=== PATIENT | male | born 1955 | race Caucasian/White ===

== ENCOUNTER 2021-02-03 07:09 | Emergency (ER) | payer OTHER ==
[2021-02-03] MEDS ORDERED: EPINEPHrine 1 MG/10 ML SYR IV ONE (07:10)
--- OUTSIDE RECORDS SUMMARY | 2021-02-03 07:12 | XMS REPORT | Continuity of Care Document ---
:1955 Author Organization [facility] t Address 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 M ethodi margot pain margot pain 07-06 st 00:00: Hospita 00 l Arthritis Arthritis Disease Active 2018-06 [facility]odi of left of left [address] knee knee 00:00: Hospita 00 l Primary Primary Disease Active 2018-06 [facility] osteoarthr osteoarthr [address] itis of itis of 00:00: Hospita both knees both knees 00 l Total knee Total knee Disease Active 2019 M ethodi replacemen replacemen 02-06 st t status, t status, 00:00: Hosp claudy left left 00 l Chronic Chronic Disease Active [facility] bilateral bilateral [facility] st low back low back 00:00: Hospit a pain pain 00 l without without sciatica sciatica Chronic Chronic Disease Active [facility] pain of pain of 8 st both knees both knees 00:00: Ho spita 00 l Allergies, Adverse Reactions, Alerts This patient has no known allergies or adverse reactions. Family History Family Member Diagnosis Comments Start Date Stop Date Source Natural brother Cancer [facility] Natural father Cancer [facility] Social History Social Habit Start Date Stop Date Quantity Comments Source Tobacco use and 2019-08-14 2019-08-14 Never used [facility] exposure 00:00:00 00:00:00 Hospital Alcohol intake 2019-08-14 2019-08-14 Ex-drinker [facility] 00:00:00 00:00:00 (finding) Hospital Sex Ass[birth year] At [birth year] [facility] 00:00:00 00:00:00 Hospital Smoking Status Start Date Stop Date Source Never smoker [facility] al Medications Ordered Filled Start Stop Current Ordering Indication Dosage Frequency Signature Comments Components Source Medication Medication Date Date Medication? Clinician (SIG) Name Name honey 2019- Yes QD Apply [facility] (MEDIHONEY, 2-[address] HONEY,) 80 00:00: daily. Hospi ta % gel 00 l topcial gel cyclobenzap 2019-0 Yes 10mg [id number] Take 10 mg [facility] rine 2-17 [id number] mouth [address] (FLEXERIL) 19:35: 3D (three) Hosp claudy 10 mg 41 times a l tablet day as needed for muscle spasms. clonAZEPAM 2019-0 Yes 1mg Q.5D Take 1 mg Me thodi (KlonoPIN) 2-[address] 1 MG tablet 19:35: (two) Hospi ta 41 times a l day as needed for seizures. amoxicillin 2019-0 Yes 250mg Q.[id number] Take 250 [facility] (AMOXIL) 2-[id number] 250 MG 19:35: 3D mouth 3 Hospita capsule 41 (three) l times a day. HYDROcodone 2019-0 Yes [id number] 1{tbl} Q6H Take 1 M [facility]i -acetaminop 2-[address] hen (NORCO) 19:35: mouth Hospi ta 10-325 mg 41 every 6 l per tablet (six) hours as needed for moderate pain .acute pain. lisinopril 2018-0 Yes [facility] (PRINIVIL,Z 8-01 st ESTRIL) 20 00:00: Hospita mg tablet 00 l Procedures This patient has no known procedures. Plan of Care Planned Activity Planned Date Details Comments Source Future Scheduled Test COVID-19 VACCINE (1) [facility] [code = COVID-19 VACCINE (1)] Future Scheduled Test Hepatitis C screening [facility] (procedure) [code = 403489185] Future Scheduled Test COLONOSCOPY SCREENING [facility] [code = COLONOSCOPY SCREENING] Future Scheduled Test SHINGLES VACCINES (#1) [facility] [code = SHINGLES VACCINES (#1)] Future Scheduled Test INFLUENZA VACCINE [code [facility] = INFLUENZA VACCINE] Encounters Start End Encounter Admission Attending Care Care Encounter Source Date/Time Date/Time Type Type Clinicians Facility Department ID 2019-08-14 2019-08-14 Outpatient LUZ [facility] [id number] [address] [place] 00:00:00 00:00:00 JERZY [address] 2019-08-14 2019-08-14 Outpatient CANDYCAREYAstrid [facility] [id number] [address] [place] 00:00:00 00:00:[address] JERZY [address] 2019-08-04 2019-08-[address] [facility] [id number] [place] 00:00:00 00:00:[address] 2019-05-05 2019-05-07 Inpatient SRAVANI [facility] [id number] [address] [place] 00:00:00 00:00:[address] SILVIA [address] Results This patient has no known results.
[2021-02-03] MEDS ORDERED: NA CHLORIDE 0.9% 1,000 ML ONE (07:38)
[2021-02-03] MEDS ORDERED: ONDANSETRON 4 MG/2 ML VIAL ONE (07:40)
[2021-02-03] MEDS ORDERED: FENTANYL CITR 100 MCG/2 ML ONE ×2 (07:40→09:25)
[2021-02-03] MEDS ORDERED: NOREPINEPHRINE 4 MG/4 ML VIAL ONE (07:47)
[2021-02-03] MEDS ORDERED: D5W 250 ML IV ONE ×2 (07:47→09:54)
[2021-02-03 08:06] LABS: Protime INR 1.03
[2021-02-03 08:08] LABS: Absolute Lymphocytes (CBC) 3.9 K/uL (0.7-4.9); Basophils % 0.6 % (0-1.3); Hematocrit 50.8 % (39.6-49.0); Lymphocytes % 40.9 % (15.3-44.8); MPV 8.3 fL (7.6-11.3); RBC Red Blood Cell Count 5.64 M/uL (4.33-5.43)
[2021-02-03] MEDS ORDERED: ETOMIDATE 20 MG/10 ML VIAL IV ONE (08:19)
[2021-02-03 08:33] LABS: BUN Blood Urea Nitrogen 27 mg/dL (7-18); Bicarbonate 22 mmol/L (21-32); Glucose Level 145 mg/dL (74-106); NT PRO-BNP 140 pg/mL (<125); Sodium Level 150 mmol/L (136-145); Troponin (Emerg Dept Use Only) < 0.02 ng/mL (0.0-0.045)
[2021-02-03 08:36] LABS: Magnesium 2.4 mg/dL (1.8-2.4); Potassium 4.1 mmol/L (3.5-5.1)
[2021-02-03] MEDS ORDERED: AMIODARONE IN DEXTROSE,ISO-OSM 360 MG/200 ML BAG IV ONE (08:39)
--- NOTE | 2021-02-03 08:40 | RAD REPORT ---
EXAM DESCRIPTION: CT - Angio Aorta For Dissection - 02/03/2021 8:14 am CLINICAL HISTORY: . Chest and abd pain COMPARISON: None TECHNIQUE: Computed tomography angiography of the chest, abdomen pelvis were obtained. 150 cc Isovue 370 was administered intravenously. Coronal and sagittal reconstruction were performed. MIP 3D reconstruction was performed All CT scans are performed using dose optimization technique as appropriate and may include automated exposure control or mA/KV adjustment according to patient size. FINDINGS: Due to machine malfunction the bolus of contrast is present within the pulmonary arteries and not the aorta. This renders detection of an aortic dissection nondiagnostic. Proximal ascending aorta has an AP diameter 4.5 centimeters. Descending aorta is ectatic and tortuou s. . A lung consolidation is not present. A pericardial effusion is not seen. A pleural effusion is not n oted. The heart is enlarged. Curvilinear calcification are present within the abdominal aorta in several locations towards the [place] ter of the lumen. Opacification of right hepatic veins is present while left hepatic veins are unopacified. I suspect t his is related passive hepatic congestion. 5.8 centimeter cystic mass within the liver is nonspecific without IV contrast but probably a cyst. Spleen, pancreas and right adrenal gland grossly normal. Small nonobstructing bilateral renal calculi. Renal cysts are present. Left adrenal adenoma measures 2.5 centimeters Small umbilical hernia contains fat. Diverticula stem the colon without evidence diverticulitis. Normal appendix. No free air. 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 This is very nonspecific fin ding but can be a secondary sign of an aortic dissection.
--- NOTE | 2021-02-03 08:41 | RAD REPORT ---
EXAM DESCRIPTION: Kevon Single View02/03/2021 7:47 am CLINICAL HISTORY: Chest pain COMPARISON: none FINDINGS: The lungs appear clear of acute infiltrate. The heart is is enlarged . The thoracic aorta is prominent which may be secondary to an aneurysm
[2021-02-03] MEDS ORDERED: NA CHLORIDE 0.9% 2,000 ML ONE (09:41)
--- NOTE | 2021-02-03 09:53 | EDPHYS ---
Physician Documentation [facility] Name: Rubin Lentz Age: 65 yrs Sex: Male : 1955 Arrival Date: 02/03/2021 Time: 07:11 Bed DIS1 Private MD: ED Physician David Meza HPI: 02/03 07:19 This 65 yrs old Male presents to ER via Unassigned with complaints of Chest rn pain. 07:19 The patient or guardian reports chest pain that is located primarily in the substernal rn area. Onset: just prior to arrival. The pain radiates to back. Associated signs and symptoms: Pertinent positives: diaphoresis, shortness of breath, Pertinent negatives: abdominal pain, cough, syncope, vomiting. The chest pain is described as sharp. Duration: The patient or guardian reports a single episode, that is still ongoing. Modifying factors: The symptoms are alleviated by nothing. the symptoms are aggravated by nothing. Severity of pain: At its worst the pain was moderate in the emergency department the pain is unchanged. The patient has not experienced similar symptoms in the past. The patient has not recently seen a physician. Patient states substernal, sharp, woke him up from sleep. EMS states patient diaphoretic and hypotensive. Radiates to the back. Patient denies recent illness felt fine when went to bed. No previous cardiac problems. Not anticoagulated.. Historical: - Allergies: 07:05 No Known Allergies; jb4 - PMHx: 07:05 Hypertensive disorder; depression; jb4 - Immunization history:: Adult Immunizations unknown. - Social history:: Smoking status: unknown. - Family history:: not pertinent. - Hospitalizations: : No recent hospitalization is reported. ROS: 07:19 Constitutional: Negative for fever, chills, and weight loss, Eyes: Negative for injury, rn pain, redness, and discharge, Neck: Negative for injury, pain, and swelling, Cardiovascular: Negative for palpitations, and edema, Respiratory: Negative for cough, wheezing, and pleuritic chest pain, Abdomen/GI: Negative for abdominal pain, vomiting, diarrhea, and constipation, Back: Negative for injury : Negative for injury, bleeding, discharge, and swelling, MS/Extremity: Negative for injury and deformity, Skin: Negative for injury, rash, and discoloration, Neuro: Negative for headache, weakness, numbness, tingling, and seizure. 07:19 All other systems are negative. Exam: 07:19 Constitutional: Overweight male diaphoretic and appears uncomfortable Head/Face: rn Normocephalic, atraumatic. Eyes: Periorbital areas with no swelling, redness, or edema. Cardiovascular: Irregular, regular rate rhythm, no pulse deficits Respiratory: Mild tachypnea Abdomen/GI: Soft, nontender, no pulsatile masses Skin: Warm, dry MS/ Extremity: Pulses equal, no cyanosis. Neuro: Awake and alert, GCS 15 08:34 ECG was reviewed by the Attending Physician. rn Vital Signs: 07:08 BP 70 / 46; Pulse 91; Resp 15; Pulse Ox 98% on 15% Non-rebreather mask; sv 07:10 Weight 130 kg; sv 07:15 BP 74 / 52; Pulse 89; Resp 15; Pulse Ox 100% on 15% Non-rebreather mask; sv 07:24 BP 72 / 48; Pulse 92; Resp 25; Pulse Ox 100% on 15% Non-rebreather mask; sv 07:45 BP 59 / 46; Pulse 103; Resp 16; Pulse Ox 100% on 15% Non-rebreather mask; sv 08:00 BP 82 / 58; Pulse 108; Resp 16; Pulse Ox 99% on 15% Non-rebreather mask; sv 08:15 BP 81 / 44; Pulse 124; Resp 16; Pulse Ox 100% on BVM; sv 08:30 BP 58 / 34; Pulse 88; Resp 20; sv 08:45 BP 83 / 69; Pulse 100; Resp 35; Pulse Ox 100% ; sv 09:00 BP 56 / 45; Pulse 108; Resp 21; Temp 96.8(C); Pulse Ox 88% on BVM; sv 09:04 BP 56 / 45; Pulse 109; Resp 24; Temp 96.9; Pulse Ox 91% on 100% FiO2 ETT vent; sv 09:15 BP 51 / 32; Pulse 103; Resp 17; Pulse Ox 100% on BVM; sv 09:30 BP 51 / 19; Pulse 76; Resp 16; Pulse Ox 100% on 100% FiO2 ETT vent; sv 09:31 BP 35 / 23; Pulse 25; Resp 16; sv 09:34 Pulse 29; sv 09:37 BP 98 / 17; Pulse 115; Resp 16; Temp 96.8; Pulse Ox 75% on 100% FiO2 ETT vent; sv Procedures: 07:35 Central Line: the site was prepped with Betadine, in sterile fashion, a triple lumen rn catheter was inserted, in the right femoral vein, in 1 attempts. placement was verified, by blood return, the site was dressed with Tegaderm, using sterile technique, the patient tolerated the procedure, well. 08:01 Intubation: Ventilated with 100% NRB prior to procedure. O2 saturation prior to learning and development manager was 100 %. Intubated orally using # 4 Janet blade with 7.5 mm ETT. was successful on first attempt. Ventilated with Ambu bag. Cricoid pressure applied during procedure. Tube secured with ETT english at right side of mouth measured 23 cm at teeth. Placement verified by CO2 detector with (+) color change, auscultating bilateral breath sounds, O2 saturation after procedure was 100 %. Patient tolerated well. MDM: 07:12 Patient medically screened. rn 07:35 ED course: Patient persistently hypotensive and diaphoretic despite fluid challenge, rn decision made to place central line, right femoral for rapid access. Patient cannot move or feel below umbilicus, EKG consistent with cardiac ischemia but given chest pain back pain hypotension and neurological findings will need to rule out aortic dissection.. 07:47 ED course: Patient not improving with pressor initially, called for stat CT.. rn 08:01 ED course: Was being prepared for CAT scan, patient became unresponsive, agonal rn breathing, never lost a pulse or required CPR. Intubated immediately without meds. Blood pressure currently 75 systolic, will attempt CT scan again. 08:20 ED course: Called radiology reading room for stat read, no answer. . rn 08:23 The patient was not given aspirin in the Emergency Department. Administered by EMS. rn 08:36 Data interpreted: manager monitoring: rate is 88 beats/min, rhythm is irregular, with rn unifocal PVCs, Interpretation: normal rate, atrial fibrillation, Pulse oximetry: on ventilator is 100 %. Interpretation: acceptable. Test interpretation: by ED physician or midlevel provider: ECG, plain radiologic studies, CXR with widened mediastinum. . 08:42 ED course: Per Dr. Morrison, CT aorta is nondiagnostic. No obvious signs of dissection, rn but states possible secondary sign of descending aortic dissection with curvilinear density in aorta. Paging cardiology now. 08:55 ED course: Updated family, CT without obvious aortic dissection, given presentation and rn inability to move lower extremities would have anticipated more drastic findings. Because of this we will consult cardiology, waiting on callback, to see if they want to take patient to cath for possible MS given diffuse ST depression and elevation in aVR. Patient seems to be responding to dobutamine.. 09:00 ED course: Consulted with Dr. Fermin recommends transfer, unable to activate Incident Handler rn at this point. States would not currently anticoagulate for possible MS given possible dissection. States would continue current care and try to transfer out emergently.. 09:12 ED course: [facility] contacted, state will not give patient a bed unless has Covid rn swab back. I do not believe patient has the time to wait for Covid result which could take an hour and a half or 2 hours. Will have to transfer somewhere else who can better accommodate.. 09:19 ED course: [facility] at full capacity, unable to accommodate transfer. rn 09:28 ED course: Patient received 2 L bolus by EMS, 1 L bolus here, persistently hypotensive..rn 09:47 ED course: Upon waiting for patient transfer patient continued to decompensate, blood rn pressure despite adding Shaquille-Synephrine still remained 30 systolic. Ran code, despite multiple epinephrine no cardiac activity or pulse obtained. Bedside echo performed no cardiac activity. Family in room. Time of 945. 02/03 07:13 Order name: Basic Metabolic Panel; Complete Time: 08:39 rn 02/03 07:13 Order name: CBC with Diff; Complete Time: 08:30 rn 02/03 07:13 Order name: Magnesium; Complete Time: 08:39 rn 02/03 07:13 Order name: NT PRO-BNP; Complete Time: 08:39 rn 02/03 07:13 Order name: PT-INR; Complete Time: 08:30 rn 02/03 07:13 Order name: Troponin (emerg Dept Use Only); Complete Time: 08:39 rn 02/03 07:13 Order name: XRAY Chest (1 view); Complete Time: 08:42 rn 02/03 07:13 Order name: CT Aorta for Dissection; Complete Time: 08:41 rn 02/03 09:12 Order name: COVID-19 : Document "Date of Symptom Onset" if Symptomatic. rn 02/03 10:40 Order name: SARS-COV-2 RT PCR EDMS 02/03 07:13 Order name: EKG; Complete Time: 07:14 rn 02/03 07:13 Order name: Cardiac monitoring; Complete Time: 07:21 rn 02/03 07:13 Order name: EKG - Nurse/Tech; Complete Time: 07:21 rn 02/03 13:00 Order name: EKG Electrocardiogram EDMS 02/03 13:00 Order name: EKG Electrocardiogram EDMS 02/03 07:13 Order name: IV Saline Lock; Complete Time: 07:21 rn 02/03 07:13 Order name: Labs collected and sent; Complete Time: 07: rn 02/03 07:13 Order name: O2 Per Protocol; Complete Time: 07: rn 02/03 07:13 Order name: O2 Sat Monitoring; Complete Time: 07:21 rn EC:34 Rate is 85 beats/min. Rhythm is irregular. QRS [place] is Normal. QRS interval is normal. rn QT interval is normal. No Q waves. T waves are Normal. ST Segment is elevated in lead aVR. ST Segment is depressed in leads I, II, III, aVF, V2, V3, V4, V5, V6. Clinical impression: Atrial Fibrillation and Diffuse ST depression, ST elevation aVR. Interpreted by me. Reviewed by me. Administered Medications: 07:20 Drug: Zofran (Ondansetron) 4 mg Route: IVP; Site: right antecubital; sv 07:20 Drug: NS 0.9% 1000 ml Route: IV; Rate: 1000 ml; Site: left antecubital; sv 07:21 Drug: fentaNYL (PF) 50 mcg Route: IVP; Site: right antecubital; sv 07:40 Drug: Levophed (norepinephrine) (4 mg/250 mL D5W 4 mcg/min {Note: started at 5 mcg/min sv per Dr Meza.} Route: IV; Rate: calculated rate; Site: right femoral; 07:49 Follow up: Response: No adverse reaction; Rate change 10 calculated rate; IV Status: sv Completed infusion 08:01 Follow up: Response: No adverse reaction; Rate change 12.5 calculated rate sv 08:32 Follow up: Response: No adverse reaction; Rate change 20 calculated rate sv 08:45 Follow up: Response: No adverse reaction; Rate change 30 calculated rate sv 09:12 Follow up: Response: No adverse reaction; Rate change 40 calculated rate sv 07:40 Drug: NS 0.9% 1000 ml Route: IV; Rate: 1000 ml; Site: left antecubital; sv 08:32 Drug: DOBUTamine (250 mg/250mL premix) 5 mcg/kg/min {Note: started at 10 mcg/kg/min.} sv Route: IV; Rate: calculated rate; Site: right femoral; 08:45 Follow up: Response: No adverse reaction; Rate change 20 calculated rate sv 09:12 Follow up: Response: No adverse reaction; Rate change 30 calculated rate sv 09:34 Follow up: Response: No adverse reaction; Rate change 40 calculated rate sv 08:40 Drug: amiodarone 150 mg Volume: 100 ml; Route: IVPB; Infused Over: 10 mins; Site: right sv femoral; 08:45 Drug: amiodarone 900 mg, D5W 500 ml Route: IVPB; Rate: 1 mg/min; Site: right femoral; sv 09:04 Drug: fentaNYL (PF) 50 mcg {Note: rass2.} Route: IVP; Site: right femoral; sv 09:30 Follow up: Response: No adverse reaction sv 09:22 Drug: NS 0.9% 1000 ml Route: IV; Rate: 1000 ml; Site: right femoral; sv 09:34 Drug: Shaquille-Synephrine (phenylephrine) 100 mcg/min Route: IV; Rate: calculated rate; sv Site: right femoral; 09:41 Drug: EPINEPHrine 0.1mg/mL 1:10,000 1 mg Route: IVP; Site: right femoral; sv 09:43 Drug: EPINEPHrine 0.1mg/mL 1:10,000 1 mg Route: IVP; Site: right femoral; sv Disposition: 09:47 . rn 09:52 Critical Care:. Critical Care:. rn Disposition Summary: 02/03/21 09:52 Patient Location: Chief Diversity Officer rn Pronouncing Physician: David Meza rn Time of : 09:45 02/03/2021 rn Diagnosis - Dissection of abdominal aorta rn - Acute myocardial infarction, unspecified rn - Cardiogenic shock varnisher time excluding procedures: 09:52 Critical care time: Bedside Care: 75 minutes, Consultation: 10 minutes, Family rn Intervention: 10 minutes. Total time: 95 minutes Signatures: Dispatcher [employer] EDAdnria Cuellar RN David Jain MD MD rn Bryson, James, RN RN jb4 Corrections: (The following items were deleted from the chart) : 09:13 CORONAVIRUS ordered. EDMS EDMS 09:13 09:13 CORONAVIRUS ordered. EDMS EDMS 09:46 09:12 CORONAVIRUS+MR.LAB.BRZ ordered. EDMS EDMS :13 09:16 Accucheck ordered. artie joseph
--- NOTE | 2021-02-03 09:53 | ER ---
Nurse's Notes [facility] Name: Rubin Lentz Age: 65 yrs Sex: Male : 1955 Arrival Date: 02/03/2021 Time: 07:11 Bed DIS1 Private MD: Diagnosis: Dissection of abdominal aorta;Acute myocardial infarction, unspecified;Cardiogenic shock Presentation: 02/03 07:05 Chief complaint: EMS states: Pt was woken by substernal chest pain that radiates to his jb4 back. He is pale, cold, and diaphoretic. We gave 324 of ASA and started him on a 1L bolus of NS. 07:05 Coronavirus screen: At this time, the client does not indicate any symptoms associated jb4 with coronavirus-19. Ebola Screen: No symptoms or risks identified at this time. Initial Sepsis Screen: Does the patient meet any 2 criteria? RR > 20 per min. HR > 90 bpm. Yes Does the patient have a suspected source of infection? No. Patient's initial sepsis screen is negative. Risk Assessment: Do you want to hurt yourself or someone else? Patient reports no desire to harm self or others. Onset of symptoms was February 03, 2021. Transition of care: patient was not received from another setting of care. 07:05 Method Of Arrival: EMS: [facility] jb4 07:05 Acuity: GILBERTO 1 jb4 09:39 Care prior to arrival: see ER charting. Compressions began at 09:39. sv Triage Assessment: 07:05 General: Appears distressed, well developed, Behavior is calm, cooperative. Pain: sv Complains of pain in left scapular area, right scapular area, left subscapular area, right subscapular area, thoracic area and chest Pain currently is 10 out of 10 on a pain scale. Pain began this morning, woke him up out of sleep. Neuro: Level of Consciousness is awake, alert, obeys commands, Oriented to person, place, time, situation, Reports numbness in right leg and left leg and unable to move them. Cardiovascular: Pulses are palpable in right radial artery and left radial artery Rhythm is atrial fibrillation. Respiratory: Airway is patent Respiratory effort is even, unlabored, Respiratory pattern is regular, symmetrical. GI: Abdomen is obese. Derm: Skin is intact, Skin is diaphoretic, Skin is mottled, pale, BLE Skin temperature is cool. Historical: - Allergies: 07:05 No Known Allergies; jb4 - PMHx: 07:05 Hypertensive disorder; depression; jb4 - Immunization history:: Adult Immunizations unknown. - Social history:: Smoking status: unknown. - Family history:: not pertinent. - Hospitalizations: : No recent hospitalization is reported. Screenin:33 Abuse screen: Denies threats or abuse. Denies injuries from another. Nutritional sv screening: No deficits noted. Tuberculosis screening: No symptoms or risk factors identified. Fall Risk None identified. Assessment: 07:32 Reassessment: Dr Meza at bedside to place a CL. sv 08:10 Reassessment: Pt taken to CT via stretcher on [employer] with Isabelle MARTINEZ and Dr Meza. While sv in CT pt went into SVT in the 160-170s and was able to convert on his own after a minute. 09:39 CPR assessment: unresponsive, no respiratory effort, intubated, mechanical ventilation, sv cyanotic, pale. Cardiac rhythm is PEA. 09:41 CPR assessment: CPR paused, pulse check-PEA, CPR resumed. Epinephrine given. sv 09:43 CPR assessment: CPR paused, pulse check-PEA, CPR resumed. Epinephrine given. sv 09:45 CPR assessment: CPR paused, pulse check-PEA. Ultrasound at bedside for Dr Meza, no sv cardiac output reported. Dr Meza speaking with family at the bedside. Time of called by Dr Meza. 10:18 Reassessment: [facility] called by myself, spoke with Maite. Pt is a candidate. Case sv #[id number]. 11:30 Reassessment: Family stated they wanted [facility]. sv 13:10 Reassessment: Daughter Nu called and stated that they wanted to change the home to [place] [facility] in [place]. Vital Signs: 07:08 BP 70 / 46; Pulse 91; Resp 15; Pulse Ox 98% on 15% Non-rebreather mask; sv 07:10 Weight 130 kg; sv 07:15 BP 74 / 52; Pulse 89; Resp 15; Pulse Ox 100% on 15% Non-rebreather mask; sv 07:24 BP 72 / 48; Pulse 92; Resp 25; Pulse Ox 100% on 15% Non-rebreather mask; sv 07:45 BP 59 / 46; Pulse 103; Resp 16; Pulse Ox 100% on 15% Non-rebreather mask; sv 08:00 BP 82 / 58; Pulse 108; Resp 16; Pulse Ox 99% on 15% Non-rebreather mask; sv 08:15 BP 81 / 44; Pulse 124; Resp 16; Pulse Ox 100% on BVM; sv 08:30 BP 58 / 34; Pulse 88; Resp 20; sv 08:45 BP 83 / 69; Pulse 100; Resp 35; Pulse Ox 100% ; sv 09:00 BP 56 / 45; Pulse 108; Resp 21; Temp 96.8(C); Pulse Ox 88% on BVM; sv 09:04 BP 56 / 45; Pulse 109; Resp 24; Temp 96.9; Pulse Ox 91% on 100% FiO2 ETT vent; sv 09:15 BP 51 / 32; Pulse 103; Resp 17; Pulse Ox 100% on BVM; sv 09:30 BP 51 / 19; Pulse 76; Resp 16; Pulse Ox 100% on 100% FiO2 ETT vent; sv 09:31 BP 35 / 23; Pulse 25; Resp 16; sv 09:34 Pulse 29; sv 09:37 BP 98 / 17; Pulse 115; Resp 16; Temp 96.8; Pulse Ox 75% on 100% FiO2 ETT vent; sv ED Course: 07:05 Arm band placed on right wrist. jb4 07:05 threat monitoring analyst on. Pulse ox on. NIBP on. sv 07:05 Maintain EMS IV. Dressing intact. Site clean \\T\\ dry. Gauge \\T\\ site: 20G R AC. sv 07:05 Oxygen administration via non-rebreather mask \\T\\ 15L/min. sv 07:10 Patient has correct armband on for positive identification. Bed in low position. Call sv light in reach. Side rails up X2. 07:10 Inserted saline lock: 20 gauge in left antecubital area, using aseptic technique. sv ,using aseptic technique. done by [employer] [facility] Blood collected. 07:11 Patient arrived in ED. em 07:12 David Meza MD is Attending Physician. rn 07:20 Andria Mendez RN is Primary Nurse. sv 07:27 Triage completed. jb4 07:45 Assisted provider with central line placement. Set up central line tray. Triple lumen sv line placed in right femoral. Line placed by David Meza MD Placement verified by blood return, Dressed with Tegaderm, Blood was collected. Patient tolerated poorly. Before procedure, did Practitioner(s) obtain informed consent? No. Patient \\T\\ family education about procedure, CLABSI prevention and S/S of infection? No. Time-out/Briefing performed prior to start of procedure? Yes. Was handwashing/sanitizing done immediately prior to procedure? Yes. Was patient positioned to in a way to prevent air embolism? Yes. Was procedure site sterilized? Yes, with chlorhexidine. Was the site allowed to dry? Yes. Was local anesthetic and/or sedation utilized? Yes. During the procedure, did the Practitioner(s) maintain a sterile field? Yes. Were unused ports clamped during insertion? Yes. Was a 2nd qualified MD obtained after 3 unsuccessful insertion attempts? Yes. Was blood aspirated from each lumen? Yes. After the procedure, did the Practitioner(s) clean the site and apply a sterile dressing? Yes. 07:47 XRAY Chest (1 view) In Process Unspecified. EDMS 08:05 Assisted provider with intubation using 7.5 mm ETT via oral route. ET tube secured at sv 26cm at the teeth. Set up intubation tray. Intubated by David Meza MD Placement verified by CO2 detector w/ + color change, auscultating bilateral breath sounds, CXR. 08:14 CT Aorta for Dissection In Process Unspecified. EDMS 08:20 NGT: inserted 16 Fr. other OGT verified return of gastric contents, to intermittent sv suction. Returned gastric contents. 08:45 June cath inserted, using sterile technique, 16 Fr., by ms, balloon inflated, to sv gravity drainage, returned clear yellow urine. Criticore. 09:08 attempted transfer to [facility], military education coordinator stated she can't give bed mt status until COVID swab result is back. 09:14 attempted transfer to [facility], denied due to full capacity. mt 09:[address] [facility], Dr. Meza giving to report. mt 09:40 [facility] physician called for to , notified DR meza but unable to come to phone. mt 09:49 David Meza MD is Pronouncing Provider. rn 09:54 canceled transfer. mt 10:12 COVID-19 : Document "Date of Symptom Onset" if Symptomatic. Sent. sv 10:42 contacted [facility], they will be calling the balance recesser. mt 19:12 Primary Nurse role handed off by Andria Mendez RN sv Administered Medications: 07:20 Drug: Zofran (Ondansetron) 4 mg Route: IVP; Site: right antecubital; sv 07:20 Drug: NS 0.9% 1000 ml Route: IV; Rate: 1000 ml; Site: left antecubital; sv 07:21 Drug: fentaNYL (PF) 50 mcg Route: IVP; Site: right antecubital; sv 07:40 Drug: Levophed (norepinephrine) (4 mg/250 mL D5W 4 mcg/min {Note: started at 5 mcg/min sv per Dr Meza.} Route: IV; Rate: calculated rate; Site: right femoral; 07:49 Follow up: Response: No adverse reaction; Rate change 10 calculated rate; IV Status: sv Completed infusion 08:01 Follow up: Response: No adverse reaction; Rate change 12.5 calculated rate sv 08:32 Follow up: Response: No adverse reaction; Rate change 20 calculated rate sv 08:45 Follow up: Response: No adverse reaction; Rate change 30 calculated rate sv 09:12 Follow up: Response: No adverse reaction; Rate change 40 calculated rate sv 07:40 Drug: NS 0.9% 1000 ml Route: IV; Rate: 1000 ml; Site: left antecubital; sv 08:32 Drug: DOBUTamine (250 mg/250mL premix) 5 mcg/kg/min {Note: started at 10 mcg/kg/min.} sv Route: IV; Rate: calculated rate; Site: right femoral; 08:45 Follow up: Response: No adverse reaction; Rate change 20 calculated rate sv 09:12 Follow up: Response: No adverse reaction; Rate change 30 calculated rate sv 09:34 Follow up: Response: No adverse reaction; Rate change 40 calculated rate sv 08:40 Drug: amiodarone 150 mg Volume: 100 ml; Route: IVPB; Infused Over: 10 mins; Site: right sv femoral; 08:45 Drug: amiodarone 900 mg, D5W 500 ml Route: IVPB; Rate: 1 mg/min; Site: right femoral; sv 09:04 Drug: fentaNYL (PF) 50 mcg {Note: rass2.} Route: IVP; Site: right femoral; sv 09:30 Follow up: Response: No adverse reaction sv 09:22 Drug: NS 0.9% 1000 ml Route: IV; Rate: 1000 ml; Site: right femoral; sv 09:34 Drug: Shaquille-Synephrine (phenylephrine) 100 mcg/min Route: IV; Rate: calculated rate; sv Site: right femoral; 09:41 Drug: EPINEPHrine 0.1mg/mL 1:10,000 1 mg Route: IVP; Site: right femoral; sv 09:43 Drug: EPINEPHrine 0.1mg/mL 1:10,000 1 mg Route: IVP; Site: right femoral; sv Outcome: 09:45 Patient : Time of 09:45 Pronounced by David Meza MD Body to home.sv 09:45 Condition: 21:11 Patient left the ED. bs2 Signatures: Dispatcher [employer] Andria Norton RN RN sv Munoz, Edgar RN David Luis MD MD rn Bryson, James, RN RN jb4 Thompson, [facility] Mel Drew, RN RN bs2 Corrections: (The following items were deleted from the chart) 09:32 09:00 attempted transfer to [facility], military education coordinator stated she can't give ks bed status until COVID swab result is back ks 09:32 09:29 attempted transfer to [facility], denied due to full capacity [facility] 10:46 09:45 CPR assessment: CPR paused, pulse check-PEA. Ultrasound at bedside for Dr Meza, sv no cardiac output reported. Time of called by Dr Meza. sv 10:48 09:30 BP 51 / 19; Pulse 76bpm; Resp 16bpm; Pulse Ox 100% ET / Ventilator; sv sv 10:48 09:37 BP 98 / 17; Pulse 115bpm; Resp 16bpm; Pulse Ox 75% ET / Ventilator; Temp 96.8F; svsv 15:05 08:15 Reassessment: Pt taken to CT via stretcher on [employer] with Isabelle MARTINEZ and Dr Meza. sv While in CT pt went into SVT in the 160-170s and was able to convert on his own after a minute. sv
[2021-02-03] MEDS ORDERED: Phenylephrine HCl 10 MG/ML 1 ML VIAL ONE (09:54)
[2021-02-03] MEDS ORDERED: EPINEPHrine 1 MG/10 ML SYR ONE (10:04)
[2021-02-03 21:57] VITALS: TEMP 96.8
[2021-02-03 22:29] VITALS: BP 98/17; O2SAT 75
--- NOTE | 2021-02-04 11:11 | EKG ---
Test Date: 2021-02-03 Test Time: 09:11:36 Power Line Installer And Repairer: VERONICA MEASUREMENT RESULTS: Intervals: Rate: 102 ID: [id number]: [id number] QT: 388 QTc: 505 [place]: P: ID: [id number]: [id number] T: 70 INTERPRETIVE STATEMENTS: Wide QRS rhythm Right bundle branch block Septal infarct, age undetermined Abnormal ECG Compared to ECG 02/03/2021 07:08:46 Uncertain supraventricular rhythm now present Right bundle-branch block now present Myocardial infarct finding now present Atrial fibrillation no longer present ST (T wave) deviation no longer present Electronically Signed On 02-04-21 11:07:48 CDT by Andres Fermin
== END 2021-02-03 21:11 ==
LOC: ER 07:09
PROC: 06HM33Z Insertion of Infusion Device into Right Femoral Vein, Percutaneous Approach (ICD-10-PCS; principal; 2021-02-03)
PROC: 0BH17EZ Insertion of Endotracheal Airway into Trachea, Via Natural or Artificial Opening (ICD-10-PCS; 2021-02-03)
PROC: 5A1935Z Respiratory Ventilation, Less than 24 Consecutive Hours (ICD-10-PCS; 2021-02-03)
DX: I21.9 Acute myocardial infarction, unspecified (principal); R57.0 Cardiogenic shock; I71.02 Dissection of abdominal aorta; I10 Essential (primary) hypertension; Z20.822 Contact with and (suspected) exposure to COVID-19
CPT/HCPCS: 93005 ×3; 85025; 80048; 36415; 83735; 85610; 84484; 83880; 71275; 74175; 71045; 94002; 31500; 51702; 92950; 99291; 99292; 36556; U0003; Q9967; J2370; J3010 ×2; J0171 ×2; J0282; J7060 ×2; J7030 ×2; J2405